=== PATIENT | male | born 1970 | race Caucasian/White ===

== ENCOUNTER → 2022-04-22 | Outpatient (CLI) | payer OTHER | LOC: RAD 09:08 | DX: M79.672 Pain in left foot (principal) ==

== ENCOUNTER → 2022-04-25 | Outpatient (CLI) | payer OTHER | LOC: RAD 18:46 | DX: M19.072 Primary osteoarthritis, left ankle and foot (principal) ==

== ENCOUNTER → 2024-04-20 | Outpatient (CLI) | payer OTHER | LOC: RAD 18:01 | DX: M25.561 Pain in right knee (principal) ==